=== PATIENT | female | born 1975 | race Caucasian/White ===

== ENCOUNTER → 2017-08-22 | Outpatient (CLI) | payer BC ==
[~2017-08-22] MED LIST: AMOX-559 PO; CALC-18 PO; DOXY-179 PO; GUAI120L3 PO; Magic Mouthwash PO; PRED20TA6 PO
== END ==
LOC: LAB 11:15
PROVIDERS: ATTEND Emergency Medicine
DX: R05 Cough (principal)
CPT/HCPCS: 87633

== ENCOUNTER → 2019-02-17 | Outpatient (CLI) | payer BC ==
[~2019-02-17] MED LIST changes: +OMEP40CA48 PO; +PHEN-580 PO; +PRED-1 PO
== END ==
LOC: LAB 10:32
PROVIDERS: ATTEND Emergency Medicine
DX: R53.83 Other fatigue (principal)
CPT/HCPCS: 36415; 81001; 82306; 82310; 82374; 82435; 82565; 82607; 82947; 84132; 84295; 84520

== ENCOUNTER → 2019-03-06 | Outpatient (CLI) | payer BC | LOC: RESP 01:37 | PROVIDERS: ATTEND Emergency Medicine | DX: R09.02 Hypoxemia (principal) | CPT/HCPCS: 94060; 94726; 94729 ==